=== PATIENT | male | born 2000 | race Two or more races ===

== ENCOUNTER 2023-12-15 11:23 | Emergency (ER) | payer SELFPAY ==
[2023-12-15] MEDS ORDERED: Sodium Chloride 0.9% 10 ML Syringe FLUSH PRN (11:44)
[2023-12-15] MEDS: Ondansetron 4 MG/2 ML SDV IVPUSH ONE (11:50)
[2023-12-15] MEDS: Morphine 4 MG/ML VIAL IVPUSH ONE (11:56)
[2023-12-15 11:57] LABS: BASOPHILS ABSOLUTE AUTO 0.1 x10-3/uL (0.0-0.3); BASOPHILS PERCENT AUTO 0.7 % (0.3-3.8); EOSINOPHILS ABSOLUTE AUTO 0.3 x10-3/uL (0.0-0.6); EOSINOPHILS PERCENT AUTO 2.9 % (0.1-6.8); HEMOGLOBIN 16.8 g/dL (12.9-17.7); LYMPHOCYTES ABSOLUTE AUTO 2.9 x10-3/uL (0.5-4.5); LYMPHOCYTES PERCENT AUTO 30.7 % (15.8-45.3); MEAN CORPUSCULAR HEMOGLOBIN 29.6 pg (27.0-33.3); MEAN CORPUSCULAR HGB CONC 34.4 g/dL (28.7-35.3); MEAN CORPUSCULAR VOLUME 86.2 fL (80.8-98.7); MEAN PLATELET VOLUME 8.7 fL (6.7-11.0); MONOCYTES ABSOLUTE AUTO 0.8 x10-3/uL (0.0-1.2); MONOCYTES PERCENT AUTO 8.5 % (5.5-15.2); NEUTROPHILS ABSOLUTE AUTO 5.4 x10-3/uL (1.7-6.9); NEUTROPHILS PERCENT AUTO 57.2 % (40.3-71.8); PLATELET COUNT,PLT 225 x10(3)uL (117-477); RED BLOOD CELL COUNT 5.68 x10(6)uL (3.90-5.90); RED CELL DISTRIBUTION WIDTH 13.3 % (12.4-15.0); WHITE BLOOD CELL COUNT,WBC 9.4 x10-3/uL (3.2-10.1)
[2023-12-15] MEDS: Sodium Chloride 0.9% 1,000 ML IV SCH (11:57)
[2023-12-15 12:00] LABS: BLOOD UREA NITROGEN,BUN 17 mg/dL (7-18); BUN/CREATININE RATIO 18.9 (9-20); CALCIUM 9.6 mg/dL (8.6-10.2); CARBON DIOXIDE,CO2 28 mmol/L (21-32); CHLORIDE,CL 100 mmol/L (100-110); CREATININE 0.9 mg/dL (0.70-1.30); EST CRCL DRUG DOSING (CG) 131.81 mL/min; ESTIMATED GFR 123 mL/min (>60); GLUCOSE RANDOM 112 mg/dL (80-116); POTASSIUM,K 3.7 mmol/L (3.5-5.3); SODIUM,NA 139 mmol/L (135-145)
[2023-12-15 12:06] LABS: A/G RATIO 1.2; ALANINE AMINOTRANSFERASE,ALT 28 U/L (12-36); ALBUMIN 4.6 g/dL (3.5-5.2); ALKALINE PHOSPHATASE 83 IU/L (56-112); AMYLASE 43 U/L (25-115); ASPARTATE AMNIOTRANSFERASE,AST 12 IU/L (5-25); BILIRUBIN TOTAL 0.4 mg/dL (0.1-1.3); PROTEIN TOTAL,TP 8.6 g/dL (6.0-8.0)
[2023-12-15 12:08] LABS: LIPASE 31 U/L (16-77)
[2023-12-15 12:09] LABS: TROPONIN I < 4.0 pg/mL (4.0-60.3)
[2023-12-15] MEDS: Iopamidol 755 Mg/ML 100 ML Bottle IV ONE (12:29)
[2023-12-15 13:01] LABS: BILIRUBIN,URINE NEGATIVE (NEGATIVE); GLUCOSE,URINE NORMAL (NORMAL); KETONES,URINE NEGATIVE (NEGATIVE); LEUKOCYTE ESTERASE,URINE NEGATIVE (NEGATIVE); NITRITE,URINE NEGATIVE (NEGATIVE); OCCULT BLOOD,URINE NEGATIVE (NEGATIVE); PROTEIN,URINE TRACE mg/dL (NEGATIVE); UROBILINOGEN,URINE NORMAL (NEGATIVE)
[2023-12-15 13:11] LABS: APPEARANCE,URINE CLEAR (CLEAR); BACTERIA,URINE OCCASIONAL (NS); COLOR,URINE YELLOW (YELLOW); SQUAMOUS EPITHELIAL CELLS,UR RARE (NS,R,O); WBC,URINE 0-5 (0-5)
== END 2023-12-15 13:54 | disposition home or self-care (01) ==
LOC: FB.ED 11:23
DX: K21.9 Gastro-esophageal reflux disease without esophagitis (principal); F17.210 Nicotine dependence, cigarettes, uncomplicated
CPT/HCPCS: 74177; 80053; 81001; 82150; 83690; 84484; 85025; 93005; 93010; 96361; 96374; 96375; 99283; 99284-25; J2270; J2405; J7030; Q9967